=== PATIENT | female | born 2000 | race Caucasian/White ===

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

== ENCOUNTER 2018-05-13 00:12 | Emergency (ER) | payer MEDICAID ==
--- NOTE | 2018-05-13 00:48 | ED Physician Documentation ---
History of Present Illness - Stated complaint Stated Complaint: ABD PX - Chief complaint Chief Complaint: Abd Pain - History obtained from History obtained from: Patient - History of Present Illness Timing: Today, How many hours ago (2-3) Improved by: nothing Worsened by: Palpation - Additonal information Additional information: C/O generalized abd. Pain, sudden onset few hours ago, predominantly left-sided. Has had burning dysuria x 2 days and urinary frequency Review of Systems Constitutional: reports: Reviewed and negative Throat: reports: Sore throat Cardiac: reports: Reviewed and negative Respiratory: reports: Reviewed and negative GI: reports: Abdominal Pain, Nausea, Vomiting : reports: Dysuria, Frequency Musculoskeletal: reports: Back pain PD PAST MEDICAL HISTORY - Past Medical History Past Medical History: No - Past Surgical History Past Surgical History: No - Present Medications Home Medications: Ambulatory Orders Medication Instructions Recorded Confirmed Ciprofloxacin HCl [Cipro] 500 mg PO BID #14 tablet 05/13/18 Phenazopyridine HCl [Pyridium] 200 mg PO TID 2 Days #6 tablet 05/13/18 - Allergies Allergies/Adverse Reactions: Allergies Allergy/AdvReac Type Severity Reaction Status Date / Time Sulfa (Sulfonamide Allergy Edema Verified 05/13/18 00:25 Antibiotics) - Living Situation Living Arrangement: reports: At home - Social History Does the pt smoke?: No Smoking Status: Never smoker Does the pt drink ETOH?: No Does the pt have substance abuse?: No - Immunizations Immunizations are current?: Yes - POLST Patient has POLST: No PD ED PE NORMAL - Vitals Vital signs reviewed: Yes - General General: Alert and oriented X 3, No acute distress, Well developed/nourished - HEENT HEENT: Moist mucous membranes - Neck Neck: Supple, no meningeal sign - Cardiac Cardiac: RRR, No murmur, No gallop, No rub - Respiratory Respiratory: No respiratory distress, Clear bilaterally - Abdomen Abdomen: Normal bowel sounds, Soft, Non distended PD ED PE EXPANDED - Abdomen Abdomen: Tender to palpation, Periumbilical, Left abdomen. No: Rebound, Guarding Results - Vitals Vitals: Vital Signs - 24 hr 05/13/18 03:32 Heart Rate 71 Respiratory 18 Rate Blood Pressure 128/52 L O2 Saturation 97 Oxygen O2 Source Room air - Labs Labs: Laboratory Tests 05/13/18 05/13/18 05/13/18 00:40 00:40 00:44 WBC 9.4 RBC 4.18 L Hgb 13.2 Hct 36.3 L MCV 86.9 MCH 31.5 H MCHC 36.2 H RDW 12.1 Plt Count 240 MPV 8.4 Neut # (Auto) 6.3 Lymph # (Auto) 2.3 [place] # (Auto) 0.6 Eos # (Auto) 0.1 Baso # (Auto) 0.1 Absolute Nucleated RBC 0.00 Nucleated RBC % 0.0 Sodium Potassium Chloride Carbon Dioxide Anion Gap BUN Creatinine Estimated GFR (MDRD) Glucose Calcium Total Bilirubin AST ALT Alkaline Phosphatase Total Protein Albumin Globulin Albumin/Globulin Ratio Lipase Serum HCG, Qual NEGATIVE Urine Color Urine Clarity Urine pH Ur Specific [place] Urine Protein Urine Glucose (UA) Urine Ketones Urine Occult Blood Urine Nitrite Urine Bilirubin Urine Urobilinogen Ur Leukocyte Esterase Urine RBC Urine WBC Ur Squamous Epith Cells Urine Bacteria Ur Microscopic Review Urine Culture Comments Infectious [place] Assay NEGATIVE 05/13/18 05/13/18 00:44 02:16 WBC RBC Hgb Hct MCV MCH MCHC RDW Plt Count MPV Neut # (Auto) Lymph # (Auto) [place] # (Auto) Eos # (Auto) Baso # (Auto) Absolute Nucleated RBC Nucleated RBC % Sodium 137 Potassium 3.5 Chloride 103 Carbon Dioxide 26 Anion Gap 8.0 BUN 13 Creatinine 0.7 Estimated GFR (MDRD) 108 Glucose 111 H Calcium 8.9 Total Bilirubin 0.3 AST 15 ALT 15 Alkaline Phosphatase 79 Total Protein 7.6 Albumin 4.4 Globulin 3.2 Albumin/Globulin Ratio 1.4 Lipase 22 Serum HCG, Qual Urine Color YELLOW Urine Clarity HAZY Urine pH 6.5 Ur Specific [place] 1.020 Urine Protein 30 H Urine Glucose (UA) NEGATIVE Urine Ketones NEGATIVE Urine Occult Blood MODERATE H Urine Nitrite NEGATIVE Urine Bilirubin NEGATIVE Urine Urobilinogen 0.2 (NORMAL) Ur Leukocyte Esterase SMALL H Urine RBC 11-25 H Urine WBC >25 H Ur Squamous Epith Cells FEW Squamous Urine Bacteria Few Ur Microscopic Review INDICATED Urine Culture Comments INDICATED Infectious [place] Assay PD MEDICAL DECISION MAKING - ED course Complexity details: reviewed results, re-evaluated patient, considered differential, d/w patient Departure - Departure Disposition: 01 Home, Self Care Clinical Impression: Pyelonephritis Condition: Good Instructions: ED Kidney Infec Female Follow-Up: [facility] [Provider Group] [facility] [Provider Group] Prescriptions: Ciprofloxacin HCl [Cipro] 500 mg PO BID #14 tablet Phenazopyridine HCl [Pyridium] 200 mg PO TID 2 Days #6 tablet Forms: Activity restrictions Discharge Date/Time: 05/13/18 03:34
[2018-05-13 00:50] LABS: BASOPHILS # (AUTO) 0.1 10^3/uL (0.0-0.1); BASOPHILS % (AUTO) 1.2 %; EOSINOPHILS # (AUTO) 0.1 10^3/uL (0.0-0.7); EOSINOPHILS % (AUTO) 0.8 %; HGB - HEMOGLOBIN 13.2 g/dL (12.0-16.0); LYMPHOCYTES # (AUTO) 2.3 10^3/uL (1.5-3.5); LYMPHOCYTES % (AUTO) 24.5 %; MEAN CORPUSCULAR HEMOGLOBIN 31.5 pg (27.0-31.0); MEAN CORPUSCULAR HGB CONC 36.2 g/dL (32.0-36.0); MEAN CORPUSCULAR VOLUME 86.9 fL (81.0-99.0); MEAN PLATELET VOLUME 8.4 fL (7.9-10.8); MONOCYTES # (AUTO) 0.6 10^3/uL (0.0-1.0); MONOCYTES % (AUTO) 6.8 %; NEUTROPHILS # (AUTO) 6.3 10^3/uL (1.5-6.6); NEUTROPHILS % (AUTO) 66.7 %; PLT - PLATELET COUNT 240 10^3/uL (130-450); RED BLOOD COUNT 4.18 10^6/uL (4.20-5.40); RED CELL DISTRIBUTION WIDTH 12.1 % (12.0-15.0); WHITE BLOOD COUNT 9.4 x10^3/uL (4.8-10.8)
[2018-05-13 00:59] LABS: ALBUMIN 4.4 g/dL (3.2-5.5); ALBUMIN/GLOBULIN RATIO 1.4 (1.0-2.2); BILIRUBIN,TOTAL 0.3 mg/dL (0.2-1.0); CALCIUM 8.9 mg/dL (8.5-10.3); CREATININE 0.7 mg/dL (0.4-1.0); TOTAL PROTEIN 7.6 g/dL (6.7-8.2)
[2018-05-13] MEDS ORDERED: SODIUM CHLORIDE 0.9% 1,000 ML IV STA (01:12)
[2018-05-13] MEDS ORDERED: ONDANSETRON 4 MG/2 ML VIAL IVP STA (01:12)
[2018-05-13] MEDS ORDERED: KETOROLAC 60 MG/2 ML VIAL IVP STA (01:12)
[2018-05-13 02:20] LABS: BILIRUBIN,URINE NEGATIVE (NEGATIVE); GLUCOSE, URINE (UA) NEGATIVE (NEGATIVE); KETONES,URINE (UA) NEGATIVE (NEGATIVE); LEUKOCYTE ESTERASE, URINE SMALL (NEGATIVE); NITRITE,URINE NEGATIVE (NEGATIVE); OCCULT BLOOD,URINE MODERATE (NEGATIVE); PH,URINE 6.5 PH (5.0-7.5); PROTEIN,URINE 30 mg/dL (NEGATIVE); UROBILINOGEN,URINE 0.2 (NORMAL) E.U./dL (NORMAL)
[2018-05-13 02:21] LABS: CLARITY,URINE HAZY (CLEAR)
[2018-05-13 02:21] LABS: HCG,QUALITATIVE BLOOD NEGATIVE
[2018-05-13 02:26] LABS: BACTERIA,URINE Few /HPF (None Seen); SQUAMOUS EPITHELIAL CELL,UR FEW Squamous (<= Few)
[2018-05-13] MEDS ORDERED: cefTRIAXone 1 GM in SODIUM CHLORIDE 0.9% MINIBAG 100 ML IV STA (02:40)
[2018-05-13] MEDS ORDERED: PHENAZOPYRIDINE 100 MG TABLET PO STA (03:16)
[2018-05-13 03:32] VITALS: BP 128/52
== END 2018-05-13 03:34 | disposition home or self-care (01) ==
LOC: ED 00:12
DX: N12 Tubulo-interstitial nephritis, not specified as acute or chronic (principal)
CPT/HCPCS: 36415; 80053; 81001; 83690; 84703; 85025; 86308; 87077; 87086; 87181; 96361; 96365; 96375; 99283; 99284; A9270; 81003

== ENCOUNTER 2019-05-10 00:18 | Emergency (ER) | payer MEDICAID ==
--- NOTE | 2019-05-10 00:29 | ED Physician Documentation ---
History of Present Illness - Stated complaint Stated Complaint: DIZZY,SOA, RASH ON NECK - History obtained from History obtained from: Patient - History of Present Illness Timing: Today Pain level now: 0 Improved by: nothing Worsened by: no exacerbating factors - Additonal information Additional information: c/o feeling drowsy, dizziness,and lightheaded since taking 3 OTC benadryl 2 hours ago due to pruritic rash on neck Review of Systems Constitutional: reports: Reviewed and negative Eyes: reports: Reviewed and negative Ears: denies: Tinnitus/ringing Cardiac: reports: Reviewed and negative Respiratory: reports: Reviewed and negative GI: reports: Reviewed and negative Neurologic: denies: Generalized weakness, Focal weakness, Numbness, Confused, Altered mental status, Headache PD PAST MEDICAL HISTORY - Past Medical History Past Medical History: No - Past Surgical History Past Surgical History: No - Present Medications Home Medications: Ambulatory Orders Medication Instructions Recorded Confirmed Ciprofloxacin HCl [Cipro] 500 mg PO BID #14 tablet 05/13/18 Phenazopyridine HCl [Pyridium] 200 mg PO TID 2 Days #6 tablet 05/13/18 Hydrocortisone Valerate 1 film TP BID #1 cream..g. 05/10/19 - Allergies Allergies/Adverse Reactions: Allergies Allergy/AdvReac Type Severity Reaction Status Date / Time Sulfa (Sulfonamide Allergy Severe Edema Verified 05/10/19 00:59 Antibiotics) - Social History Does the pt smoke?: No Smoking Status: Never smoker Does the pt drink ETOH?: No Does the pt have substance abuse?: No - Immunizations Immunizations are current?: Yes - POLST Patient has POLST: No PD ED PE NORMAL - Vitals Vital signs reviewed: Yes - General General: Alert and oriented X 3, No acute distress, Well developed/nourished - HEENT HEENT: PERRL, EOMI, Moist mucous membranes - Neck Neck: Supple, no meningeal sign, Other (Right anterolateral neck: flat, patchy erythema with indistinct margins. 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 unremarkable exam and H&P are c/w effects of mild (accidental) overdose of diphenhydramine. no testing nor specific treatment indicated at this time. rx for topical steroid provided for what appears to be most s/o contact or irritant dermatitis exanthem on neck Departure - Departure Disposition: 01 Home, Self Care Clinical Impression: Accidental diphenhydramine overdose, Rash Condition: Good Instructions: ED Dermatitis Non Specific Rash, ED Overdose Accidental Prescriptions: Hydrocortisone Valerate 1 film TP BID #1 cream..g. Discharge Date/Time: 05/10/19 02:05
[2019-05-10 01:44] VITALS: BP 102/72
== END 2019-05-10 02:05 | disposition home or self-care (01) ==
LOC: ED 00:18
DX: T45.0X1A Poisoning by antiallergic and antiemetic drugs, accidental (unintentional), initial encounter (principal); R40.0 Somnolence; R42 Dizziness and giddiness; R21 Rash and other nonspecific skin eruption
CPT/HCPCS: 99282; 99284

== ENCOUNTER 2019-06-23 19:29 | Emergency (ER) | payer MEDICAID ==
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
[2019-06-23 21:45] LABS: BASOPHILS % (AUTO) 0.2 %; EOSINOPHILS # (AUTO) 0.1 10^3/uL (0.0-0.7); HGB - HEMOGLOBIN 11.9 g/dL (12.0-16.0); LYMPHOCYTES # (AUTO) 2.9 10^3/uL (1.5-3.5); MEAN CORPUSCULAR HEMOGLOBIN 29.8 pg (27.0-31.0); MEAN CORPUSCULAR HGB CONC 33.7 g/dL (32.0-36.0); MEAN CORPUSCULAR VOLUME 88.5 fL (81.0-99.0); MEAN PLATELET VOLUME 10.1 fL (7.9-10.8); MONOCYTES # (AUTO) 0.7 10^3/uL (0.0-1.0); MONOCYTES % (AUTO) 7.7 %; NEUTROPHILS # (AUTO) 5.7 10^3/uL (1.5-6.6); NEUTROPHILS % (AUTO) 59.8 %; PLT - PLATELET COUNT 260 10^3/uL (130-450); RED BLOOD COUNT 3.99 10^6/uL (4.20-5.40); RED CELL DISTRIBUTION WIDTH 11.9 % (12.0-15.0); WHITE BLOOD COUNT 9.5 x10^3/uL (4.8-10.8)
--- NOTE | 2019-06-23 23:49 | Ultrasound Report ---
Reason: , abdominal cramping Procedure Date: 06/23/2019 Accession Number: [id number] / [id number] Procedure: US - OB First Trimester CPT Code: Final Report FULL RESULT: EXAM: FIRST TRIMESTER OBSTETRIC ULTRASOUND (Less than 11 weeks) EXAM DATE: 06/23/2019 11:18 PM. CLINICAL HISTORY: , abdominal cramping. Clinical dating: LMP: 05/03/2019, EGA 7 weeks 2 days, WAYNE 02/07/2020. COMPARISONS: None. TECHNIQUE: Transabdominal and transvaginal ultrasound examination with static image documentation. ASSESSMENT: Gestational Sac: Single intrauterine. Mean gestational sac diameter: 20 mm = 6 weeks 6 days. Embryo: CRL (crown-rump length) 5 mm = 6 weeks 2 days, WAYNE 02/14/2020. Cardiac activity: 113 beats per minute. Yolk sac: 4 mm. Amniotic fluid: Not accurately assessed at this gestational age. Early placenta: Not visible at this gestational age. Other: No perigestational fluid collection demonstrated. MATERNAL STRUCTURES: Uterus: Anteverted. Unremarkable. Cervix: Closed. Right Ovary/Adnexa: The ovary measures 3.5 x 2.4 x 3.2 cm, volume 14 cc. Corpus luteum measuring 1.7 cm. Unremarkable. Left Ovary/Adnexa: The ovary measures 4 x 1.4 x 2.3 cm, volume 6.8 cc. Unremarkable. Free Fluid: None. IMPRESSION: 1. Single viable intrauterine at EGA 6 weeks 2 days with WAYNE 02/14/2020 based on crown-rump length. 2. No acute findings are seen. RADIA
[2019-06-24 00:02] VITALS: BP 103/66
== END 2019-06-24 00:31 | disposition home or self-care (01) ==
LOC: ED 19:29
DX: O99.89 Other specified diseases and conditions complicating pregnancy, childbirth and the puerperium (principal); M54.5 Low back pain; R10.30 Lower abdominal pain, unspecified; Z87.891 Personal history of nicotine dependence; Z3A.01 Less than 8 weeks gestation of pregnancy
CPT/HCPCS: 36415; 76801; 76817; 84702; 85025; 86900; 86901; 99282; 99284

== ENCOUNTER 2019-07-04 23:27 | Emergency (ER) | payer MEDICAID ==
[2019-07-05 00:36] LABS: BILIRUBIN,URINE NEGATIVE (NEGATIVE); GLUCOSE, URINE (UA) NEGATIVE (NEGATIVE); KETONES,URINE (UA) TRACE mg/dL (NEGATIVE); LEUKOCYTE ESTERASE, URINE NEGATIVE (NEGATIVE); NITRITE,URINE NEGATIVE (NEGATIVE); OCCULT BLOOD,URINE NEGATIVE (NEGATIVE); PROTEIN,URINE NEGATIVE (NEGATIVE); UROBILINOGEN,URINE 0.2 (NORMAL) E.U./dL (NORMAL)
[2019-07-05 00:39] LABS: CLARITY,URINE CLEAR (CLEAR)
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
[2019-07-05 01:05] VITALS: BP 97/61
== END 2019-07-05 01:17 | disposition home or self-care (01) ==
LOC: ED 23:27
DX: O99.341 Other mental disorders complicating pregnancy, first trimester (principal); F45.8 Other somatoform disorders; Z3A.08 8 weeks gestation of pregnancy
CPT/HCPCS: 81001; 81003; 87086; 99282; 99283